=== PATIENT | male | born 1965 | race Caucasian/White ===

== ENCOUNTER 2019-05-26 20:45 | Emergency (ER) | payer OTHER, SELFPAY ==
[2019-05-26 20:47] VITALS: BP 162/89; PULSE 75; RESP 18; TEMP 36.7; O2SAT 100; BMI 30.1
--- NOTE | 2019-05-26 21:58 | CM.ED ---
Social Work Patient requesting to see rider ticket worker that patient spoke to on the phone. Patient is not being open with staff or doctor. Decided to consult crisis due to patient request. Crisis to follow up with. CHANDRAKANT Gutierrez
--- NOTE | 2019-05-26 23:18 | ED.DCSUM_ITS ---
- ER Visit Summary Date of Service: 05/26/19 Chief Complaint: Depression History of Present Illness: The patient is a 54 M who tells me that he is overwhelmed. Patient is extremely poor historian and I cannot get much information out of the family. Patient will not take his hand over his face and look at me and speak directly to me. Tells me that he had a hard day upset about his bringing the wrong buggy home. He states that he feels like his family is going to try to kill him. Apparently this is been an ongoing pain. He sees a counselor. Tells me that tonight he could not speak with them so he called some lady on the phone. After much research it would appear that he called [facility] center and spoke with a counselor. They in turn asked that he come to the emergency department. He is now upset and not understanding why the lady on the phone is not here. Physical Examination: Afebrile vital signs are stable Gen: Well-nourished well-developed Head: Normocephalic atraumatic Eyes: Perrl EOMI ENT: TMs clear no rhinorrhea moist mucous membranes Neck: Supple no lymphadenopathy no JVD nontender CVS: Regular rate rhythm no murmurs normal S1-S2 Respiratory: No distress clear to auscultation bilaterally chest nontender Abdomen: Soft nontender nondistended normal bowel sounds no masses Back: Nontender Extremity: Nontender no edema Skin: Normal color no rash Neuro: alert orientated ?3 CN II-XII intact normal strength sensation reflexes gait cerebellar Psych: Depressed affect. Appears anxious. Denies suicidal homicidal ideation Emergency Department Course and Treatment: I had crisis come and speak with the patient. Family is comfortable watching him. They assured us that they are not trying to harm him. They will return if worsens. He will contract for safety. Impression: 1. Depression 2. Anxiety This note was generated with [employer] dictation software. It may contain incorrect words, spelling, and punctuation that were not noted in review of the chart prior to signing ED Disposition - Plan for ED Patient: Disposition: Home or Assisted Living Instructions: CONTRACT, No Harm Additional Instructions: You need to call your counselor on Wednesday or return to the emergency department if you feel your worsening before you speak with them
[2019-05-26 23:35] VITALS: BP 122/90; PULSE 65; RESP 15; O2SAT 94
--- NOTE | 2019-05-26 23:35 | ED.RN ---
PT GIVEN WRITTEN AND VERBAL DISCHARGE INSTRUCTIONS. PT EDUCATED TO FOLLOW UP WITH COUNSELOR WEDNESDAY AND TO RETURN TO THE ED FOR ANY NEW OR WORSENED SX. PT VERBALIZES UNDERSTANDING AND DENIES ANY FURTHER QUESTIONS.
== END 2019-05-26 23:36 | disposition home or self-care (01) ==
PROVIDERS: Emergency Provider Emergency Medicine
DX: F32.9 Major depressive disorder, single episode, unspecified (principal); F41.9 Anxiety disorder, unspecified; R05 Cough; Z79.899 Other long term (current) drug therapy; Z72.0 Tobacco use
CPT/HCPCS: 99282

== ENCOUNTER 2019-05-27 12:49 | Emergency (ER) | payer OTHER, SELFPAY ==
[2019-05-26 20:47] VITALS: BMI 30.1
[2019-05-27 12:52] VITALS: BP 119/75; PULSE 71; RESP 16; TEMP 37.1; O2SAT 95; BMI 28.8
--- NOTE | 2019-05-27 13:00 | CM.ED ---
SOCIAL WORK REVIEWED CHART AND DISCUSSED CASE WITH NURSING AND DR. BAILEY. PATIENT SEEN IN ED YESTERDAY, 05/26/19 FOR DEPRESSION. CRISIS TO EVALUATE FOR DISPOSITION. Ashok SOLIS, TERRITORY SALES MANAGER, MATERIAL HANDLING CREW SUPERVISOR.
[2019-05-27 13:29] LABS: Absolute Lymphocyte Count 0.95 X10^3/uL (0.83-4.51); Absolute Neutrophil Count 5.7 X10^3/uL (2.0-7.7); Basophil# 0.02 X10^3/uL; Basophil% 0.3 % (0-1); Eosinophil# 0.03 X10^3/uL; Eosinophils% 0.4 % (0-5); Hemoglobin 15.2 g/dL (13.0-16.5); Lymphocyte # 0.95 X10^3/ul (4.0); Lymphocyte % 13.1 % (19-41); Mean Corp Hgb Conc 33.8 g/dL (32-36); Mean Corpuscular Hgb 28.7 pg (27.0-32.0); Mean Corpuscular Volume 85.1 fL (80-94); Mean Platelet Vol. 9.5 fl (6.2-12.0); Monocyte# 0.53 X10^3/uL; Monocyte% 7.3 % (0-10); NRBC Flagged by Analyzer 0 % (0-5); Neutrophil # 5.68 X10^3/uL (2.7-7.7); Neutrophil % 78.5 % (47-70); Platelet Count 231 K/mm3 (150-450); RBC Distribution Width CV 11.9 % (11.6-14.6); RBC Distribution Width SD 36.4 fl (35.1-43.9); Red Blood Count 5.29 M/mm3 (4.6-6.2); White Blood Count 7.2 K/mm3 (4.4-11.0)
--- NOTE | 2019-05-27 13:38 | ED.VISSUMM ---
- ER Visit Summary Date of Service: 05/27/19 Chief Complaint: Depression History of Present Illness: The patient is a 54 M history of depression, diabetes and prior hernia surgery. Patient been depressed for days. He was evaluated the other day department and discharged home with a safety plan. Reportedly he was overusing his psychiatric meds someone called the counseling center and ambulance was brought in the ER today for further evaluation. He denies being suicidal. He does not speak or give me much history but there are 2 women present with him and are giving me most of the history. Physical Examination: Middle-aged male no acute distress vital signs are stable and afebrile. He does not look septic or toxic. H EENT exam unremarkable. Neck nontender. No signs of trauma. Lungs clear to auscultation. Heart regular rhythm no murmur. Abdomen soft nontender. He is moving all 4 extremities and neurovascular intact. There is no signs of trauma or self-inflicted wounds. Back nontender. Neurologically is awake and alert with no focal motor deficits. No smell of alcohol no signs of toxidrome. Patient sitting in bed currently calm and interactive. Test Results: CBC normal. BMP normal. Tox screen negative. Alcohol negative. Emergency Department Course and Treatment: Patient will undergo ED mental health laboratory work-up. Also have a crisis evaluation for final disposition. Treatment Plan: Patient doing well at 1456. Currently talking to the counseling center personnel. I very spoken with counseling center personnel and her plan is to have him admitted to a psychiatric facility. Disposition: Transfer to a psychiatric facility Impression: Acute on chronic depression This note was generated with [employer] dictation software. It may contain incorrect words, spelling, and punctuation that were not noted in review of the chart prior to signing ED Disposition - Plan for ED Patient: Referrals: Care Physician,No Primary [Primary Care Provider] -
[2019-05-27 13:40] LABS: Anion Gap 8 (5-15); BUN 14 mg/dL (7-18); BUN/Creat Ratio 19.2 RATIO (10-20); Calcium,Total 8.7 mg/dL (8.5-10.1); Chloride 105 mmol/L (98-107); Creatinine, Serum 0.73 mg/dL (0.70-1.30); EST Glomerular Filtration Rate 120 mL/min (>60); Est Glom Filt Rate - Afr Amer 145 mL/min (>60); Estimated Creatinine Clearance 106.82 ml/min; Glucose 97 mg/dL (74-106); Potassium 3.8 mmol/L (3.5-5.1); Sodium Level 139 mmol/L (136-145)
[2019-05-27 13:42] LABS: Amphetamine Urine VISTA NEGATIVE (<1000 ng/mL); Barbiturate Urine VISTA NEGATIVE (< 200 ng/mL); Benzodiazepine Urine VISTA NEGATIVE (< 200 ng/mL); Cocaine Urine VISTA NEGATIVE (< 300 ng/mL); Ecstacy Urine VISTA NEGATIVE (< 500 ng/mL); Methadone Urine VISTA NEGATIVE (< 300 ng/mL); PCP Urine VISTA NEGATIVE (< 25 ng/mL); THC Urine VISTA NEGATIVE (< 50 ng/mL); Vista UDS pH Range 6
[2019-05-27 14:08] LABS: Alcohol, Blood (Medical)-Serum < 3.0 mg/dL
[2019-05-27 17:15] VITALS: BP 119/84; PULSE 63; RESP 16; TEMP 37; O2SAT 96
--- NOTE | 2019-05-27 18:33 | EKG12_ITS ---
[place] Reason : [facility] [place] : / mmHG Vent. Rate : 066 BPM Atrial Rate : 066 BPM P-R Int : 164 ms QRS Dur : 100 ms QT Int : 388 ms P-R-T Axes : 042 029 007 degrees QTc Int : 406 ms Normal sinus rhythm Nonspecific T wave abnormality Abnormal ECG Confirmed by GWEN WINTER, ELEAZAR ([id number]), associate editor ANJALI VALLEJO ([id number]) on 05/29/2019 2:46:21 PM Referred By: Confirmed By:ELEAZAR HIDALGO MD
[2019-05-27 19:21] LABS: AST(SGOT) 16 U/L (15-37); Alanine Aminotransfer ALT/SGPT 20 U/L (16-61); Albumin, Serum 4.4 g/dL (3.2-5.0); Alkaline Phosphatase 85 U/L (45-117); Bilirubin, Direct 0.13 mg/dL (0.00-0.30); Globulin 3.1 g/dL (2.2-4.2); Protein, Total 7.5 g/dL (6.4-8.2)
--- NOTE | 2019-05-27 20:59 | ED.RN ---
spoke with CNO at [facility] to check on acceptance. Stated that MD has the chart to review but is in with another patient at this time. Will call us with more information but is not expecting a bed to be available until morning.
[2019-05-27 21:47] VITALS: BP 109/78; PULSE 64; RESP 18; TEMP 36.9; O2SAT 98
[2019-05-27 23:04] VITALS: RESP 16
--- NOTE | 2019-05-27 23:59 | ED.RN ---
PER SAL AT [facility], PT WILL NEED TO PAY THE BILL FOR THE AMBULANCE TO [facility]. THIS INFORMATION WAS PASSED ONTO MAXWELL AT THE [facility]SEL[facility]
[2019-05-28] VITALS (9 sets, daily range): BP systolic 108–114; BP diastolic 72–76; PULSE 61–64; RESP 14–16; O2SAT 95–97
--- NOTE | 2019-05-28 05:30 | NURSING ---
CALLED [facility] ABOUT RIDE FOR PATIENT AT 0445 AND AGAIN AT 0525 AND HAVE NOT HEARD BACK
--- NOTE | 2019-05-28 06:29 | ED.RN ---
[facility] CALLED TO HAVE SOMEONE CALL THE ER
--- NOTE | 2019-05-28 06:32 | NURSING ---
TALKED TO MAXWELL FROM THE [facility] AND SHE IS TRYING TO GET IN TOUCH WITH BACILIO REGARDING TRANSPORTATION TO [facility].
[2019-05-28] MEDS: Venlafaxine XR 75 MG Capsule PO (08:32)
== END 2019-05-28 09:20 ==
PROVIDERS: Emergency Medicine; Emergency Provider Emergency Medicine
DX: F32.9 Major depressive disorder, single episode, unspecified (principal); E11.9 Type 2 diabetes mellitus without complications; Z79.899 Other long term (current) drug therapy; Z72.0 Tobacco use
CPT/HCPCS: 80048; 80076; 80307; 80320; 85025; 93005; 99285; G0480